=== PATIENT | male | born 1970 ===

== ENCOUNTER → 2024-06-20 13:21 | Outpatient (BNVA) | payer BC, SELFPAY | PROVIDERS: Family Provider Nurse Practitioner Family; PCP Physician Assistant Medical; Visit Provider Orthopaedic Surgery | DX: M54.9 Dorsalgia, unspecified (principal) | CPT/HCPCS: 72072; 72110 ==

== ENCOUNTER 2024-10-07 09:24 | Outpatient (RCR) | payer BC, SELFPAY | END 2024-10-18 23:59 | disposition home or self-care (01) | LOC: SPT 09:24 | PROVIDERS: Visit Provider Emergency Medicine | DX: M25.551 Pain in right hip (principal); M25.552 Pain in left hip | CPT/HCPCS: 97110; 97161 ==

== ENCOUNTER 2024-10-19 06:00 | Outpatient (RCR) | payer BC, SELFPAY | END 2024-11-18 23:59 | disposition home or self-care (01) | LOC: SPT 06:00 | PROVIDERS: Visit Provider Emergency Medicine | DX: G62.9 Polyneuropathy, unspecified (principal) | CPT/HCPCS: 97110 ==

== ENCOUNTER 2024-11-19 06:00 | Outpatient (RCR) | payer BC, SELFPAY | END 2024-12-16 09:56 | disposition home or self-care (01) | LOC: SPT 06:00 | PROVIDERS: Visit Provider Emergency Medicine | DX: G62.89 Other specified polyneuropathies (principal) | CPT/HCPCS: 97110; 97164 ==

== ENCOUNTER → 2024-12-17 09:25 | Outpatient (BNVA) | payer BC, SELFPAY | PROVIDERS: PCP Family Medicine; Visit Provider Orthopaedic Surgery | DX: M48.062 Spinal stenosis, lumbar region with neurogenic claudication (principal) | CPT/HCPCS: 36415; 80053; 81001; 85025 ==

== ENCOUNTER 2025-03-21 06:54 | Day surgery (SDC) | payer BC, SELFPAY ==
[2025-03-21] VITALS (10 sets, daily range): BP systolic 106–140; BP diastolic 53–93; PULSE 54–93; RESP 13–20; TEMP 36.1–36.6; O2SAT 95–97; BMI 31.8
--- NOTE | 2025-03-21 08:11 | P.ANESASSM_ITS ---
Pre-Anesthetic Assessment Height/Weight: Height 1.91 m Weight 115.666 kg Temp Pulse Resp BP Pulse Ox O2 Del Method 97.9 F 86 18 140/93 96 Room Air 03/21/25 07:16 03/21/25 07:16 03/21/25 07:16 03/21/25 07:16 03/21/25 07:16 03/21/25 07:16 Preop Diagnosis: Lumbar stenosis neurogenic claudication Operation Date: 03/21/25 08:40 Proposed Procedures p Lumbar Spine Decompression(Not Applicable) - Luis Alfredo Little DO Familial anesthetic complications: None Was Beta Himanshu taken within 24 hours: N/A Was Clonidine taken within 24 hours: N/A Last intake: Intake Last Liquid Date 03/20/25 Last Liquid Time 21:00 Last Solid Date 03/20/25 Last Solid Time 17:00 Social No alcohol and No tobacco Exam alert, oriented x 3, clear to auscultation bilaterally and regular rate & rhythm Airway Mallampati: Class II Dentition: other (none) CV/HEM Hypertension Anesthetic Plan ASA status: 2 Anesthesia: General Risk of > 500 ml blood loss (7ml/kg in children): No Medications/Allergies Home Medications ?Medication ?Instructions ?Recorded ?Confirmed ?Last Taken ?Type amlodipine 10 mg tablet 10 mg PO DAILY 90 days #90 t abs 12/16/22 03/20/25 03/20/25 Rx lisinopril 40 mg tablet 40 mg PO DAILY #90 tabs 04/04/1203/20/25 03/20/25 Rx tizanidine 2 mg capsule 2 mg PO Q8H PRN Muscle Spasm 09/19/24 03/20/25 03/20/25 History trazodone 50 mg tablet 50 mg PO DAILY 09/19/24 08/0 09/1403/20/25 History Allergies Allergy/AdvReac Type Severity Reaction Status Date / Time ciprofloxacin (From Cipro) Allergy RASH Verified 01/01/25 09:26 Current Medications Generic Name Dose Route Start Last Admin Trade Name Freq PRN Reason Stop Dose Admin Sodium Chloride 1,000 mls @ 30 mls/hr 03/21/25 07:15 03/21/25 07:37 Sodium Chloride 0.9% IV 03/22/25 07:14 30 mls/hr .Q24H MARGO Administration PFSH Anesthesia Social History Smoking and tobacco/nicotine status: never used tobacco/nicotine Alcohol intake: current Substance/Drug Use: never Adopted: No Caregiver/support person: No Lives independently: No Household members: spouse Marital status: service: No Current occupational status: employed Sexually active: Yes Do you think of yourself as: Straight/Heterosexual Current gender identity: Male
--- NOTE | 2025-03-21 08:45 | P.HP_ITS ---
Same Day Surgery H&P Indication for Procedure/HPI DATE OF PROCEDURE: March 21, 2025 CHIEF COMPLAINT/INDICATIONFOR SURGICAL PROCEDURE: Back and leg pain PREOP DIAGNOSIS: Lumbar stenosis neurogenic claudication PLANNED PROCEDURE: Operation Date: 03/21/25 08:40 Proposed Procedures p Lumbar Spine Decompression(Not Applicable) - Luis Alfredo Little, DO Medications/Allergies* Home Medications ?Medication ?Instructions ?Recorded ?Confirmed ?Type tizanidine 2 mg capsule 2 mg PO Q8H PRN Muscle Spasm 09/19/24 03/20/25 History trazodone 50 mg tablet 50 mg PO DAILY 09/19/24 08/0 09/14 History Allergies/Adverse Reactions Allergy/AdvReac Type Severity Reaction Status Date / Time ciprofloxacin (From Cipro) Allergy RASH Verified 01/01/25 09:26 Current Medications: Generic Name Dose Route Start Last Admin Trade Name Freq PRN Reason Stop Dose Admin Sodium Chloride 1,000 mls @ 30 mls/hr 03/21/25 07:15 03/21/25 07:37 Sodium Chloride 0.9% IV 03/22/25 07:14 30 mls/hr .Q24H MARGO Administration Pertinent History/Comorbid Conditions* Social History Smoking and tobacco/nicotine status: never used tobacco/nicotine Alcohol intake: current Substance/Drug Use: never Adopted: No Caregiver/support person: No Lives independently: No Household members: spouse Marital status: service: No Current occupational status: employed Sexually active: Yes Do you think of yourself as: Straight/Heterosexual Current gender identity: Male Pertinent Exam Findings alert, oriented x 3 and procedure specific exam findings Recommendations Risks and benefits of procedure reviewed Surgery/Procedure today Coding Level of Care Code Acute Code for Angelica Turpin
[2025-03-21] MEDS: ceFAZolin 2,000 mg SDV 2000 MG IVP (08:55)
[2025-03-21] MEDS: lidocaine-epi 1% 20 mL INJ INJECTION (10:00)
--- NOTE | 2025-03-21 10:17 | XR_ITS ---
WS: [id number] XR lumbar spine 2-3V* [id number] REASON FOR EXAM: OR PICS FINDINGS: Surgical instrument overlies the left side of the L1 fell at S1 and disc space. XR/XR lumbar spine 2-3V* [id number] IMPRESSION: Intraoperative lumbar level localization as above.
--- NOTE | 2025-03-21 10:36 | P.OP_ITS ---
Operative Report Date of procedure: March 21, 2025 Pre-op diagnosis: Lumbar stenosis with neurogenic claudication Post-op diagnosis: same Procedure done: 1. L4/5 laminectomy with partial facetectomy 2. L5/S1 laminectomy with partial facetectomy Surgeon: Luis Alfredo Little DO Estimated blood loss (mL): 15 Procedure: 1. L4/5 laminectomy with partial facetectomy 2. L5/S1 laminectomy with partial facetectomy Patient is brought to the operative suite. After undergoing anesthesia they are placed in the prone position. All areas of impingement are well padded. Patient is then prepped and draped in the normal sterile fashion. A skin incision is made over the L4/5 level. This is confirmed under c-arm guidance. A series of dilators are passed and the tubular retractor is docked on the L4 lamina. A bovie is used to clear the soft tissue off the lamina and the L 4/5 facet joint. A high speed graciela is then used to perform the laminectomy and take down the medial aspect of the L 4/5 facet joint. A kerrison rongeure was then used to take down the remaining lamina and smooth the edge of the laminectomy up to the point where the ligamentum flavum attaches. Attention was then brought to the medial aspect of the facet joint. The remaining medial aspect of the superior and inferior aspect of the facet joint were taken down with the kerrison from the pedicle of L4 to L 5. The facet joint had significant hypertrophy. Attention was then brought to the Ligamentum Flavum. The ligament was taken down from the lamina of L4 to L5 and out medially to the remaining facet joint. The ligament was thick. The dura was then exposed. The dura was in good repair. The L4 nerve was then traced with a curette out the L4/5 foramen and found to be adequately decompressed. The L5 nerve was traced with a curette around the L5 pedicle. The lateral recess was opened with a kerrison helping to further decompress the L5 nerve. Wound is then irrigated copiously with saline and surgiflo is used to stop any bleeding. The tubular retractor is removed A skin incision is made over the L5/S1 level. This is confirmed under c-arm guidance. A series of dilators are passed and the tubular retractor is docked on the L5 lamina. A bovie is used to clear the soft tissue off the lamina and t he L 5/S1 facet joint. A high speed graciela is then used to perform the laminectomy and take down the medial aspect of the L 5/S1 facet joint. A kerrison rongeure was then used to take down the remaining lamina and smooth the edge of the laminectomy up to the point where the ligamentum flavum attaches. Attention was then brought to the medial aspect of the facet joint. The remaining medial aspect of the superior and inferior aspect of the facet joint were taken down with the kerrison from the pedicle of L 5 to S1. The facet joint had significant hypertrophy. Attention was then brought to the Ligamentum Flavum. The ligament was taken down from the lamina of L5 to S1 and out medially to the remaining facet joint. The ligament was thick. The dura was then exposed. The dura was in good re pair. The L5 nerve was then traced with a curette out the L 5/S1 foramen and found to be adequately decompressed. The S1 nerve was traced with a curette around the S1 pedicle. The lateral recess was opened with a kerrison helping to further decompress the S1 nerve. Wound is then irrigated copiously with saline and surgiflo is used to stop any bleeding. The tubular retractor is removed and the wound is closed with vicryl and monocryl suture. Steri strips were applied. A sterile dressing is then placed. Patient was then placed in the supine position and transferred to the PACU in stable condition.
--- NOTE | 2025-03-21 11:25 | ANE.PACU2 ---
Inpatient post-anesthesia follow up: Airway intact: Yes Vital signs: Temperature 97.0 F Pulse Rate 54 Respiratory Rate 18 Blood Pressure 121/66 Pulse Oximetry 97 Oxygen Delivery Me thod Room Air Oxygen Flow Rate Fraction of Inspir ed Oxygen Hydration adequate: Yes Nausea and vomiting: No Pain level: 1 Mental status: Baseline
== END 2025-03-21 11:23 | disposition home or self-care (01) ==
PROVIDERS: PCP Family Medicine; Visit Provider Orthopaedic Surgery
PROC: (CPT 63005; principal; 2025-03-21 08:30)
DX: M48.062 Spinal stenosis, lumbar region with neurogenic claudication (principal); I10 Essential (primary) hypertension
CPT/HCPCS: 63047; 63048; 72100; 76000; J0690; J1100; J1885; J2405; J2704; J2710; J3010; J3490; J7030; J9999

== ENCOUNTER 2025-07-15 07:50 | Outpatient (CLI) | payer BC, SELFPAY ==
--- NOTE | 2025-07-15 08:00 | MR_ITS ---
WS: [id number] MRI LUMBAR SPINE NONCONTRAST TECHNIQUE: Sagittal T1, T2 and STIR imaging. Axial T1 and T2 imaging. CLINICAL INFORMATION: Back pain COMPARISON: MRI 05/30/2024 FINDINGS: Mild lumbar curve. No acute compression. Endplate Schmorl's nodes in the lower thoracic and upper lumbar spine. Shallow disc protrusions in the cervical spine at C3-C4 C4-C5 and C7-T1 with mild to moderate central canal stenosis. Additional smaller protrusions in the thoracic spine. L1-L2: Mild disc bulging. Narrowing of the subarticular recess bilaterally. Moderate facet arthropathy. Mild bilateral foraminal narrowing. L2-L3: Mild annular bulging. Slight narrowing of the subarticular recess bilaterally. Moderate facet arthropathy. Foramen are patent. L3-L4: Mild annular bulging. Narrowing of the LEFT greater than RIGHT subarticular recess. Moderate facet arthropathy. Small RIGHT foraminal protrusion with mild RIGHT foraminal narrowing. L4-L5: Central disc protrusion with moderate central canal stenosis. Impingement of the subarticular recess bilaterally. Moderate facet arthropathy. Mild LEFT greater than RIGHT foraminal narrowing. Small LEFT foraminal protrusion. L5-S1: Tiny shallow central protrusion. Contact of the S1 nerve roots. Mild central canal stenosis. Moderate facet arthropathy. Mild bilateral foraminal narrowing. RIGHT hemilaminectomy is new compared to previous. Visualized pelvic bony structures: Normal. Paravertebral soft tissues: Normal. Small bilateral renal cysts. MR/MR lumbar spine wo con* [id number] IMPRESSION: 1. RIGHT hemilaminectomy L5-S1 is new compared to previous. 2. Residual narrowing of the L5-S1 subarticular recess with slight contact of the traversing S1 nerve roots although slightly improved compared to previous. 3. Annular bulging L3-4 with narrowing of the subarticular recess. Tiny RIGHT foraminal protrusion with mild RIGHT foraminal narrowing. This is similar to pr evious. 4. Shallow central disc osteophyte protrusion L4-5 with moderate central canal stenosis and impingement of the traversing L5 nerve roots bilaterally. This is similar compared to previous. Mild LEFT greater than RIGHT foraminal narrowing . 5. Mild bilateral L5-S1 foraminal narrowing. 6. Moderate facet arthropathy L4-L5 and L5-S1. 7. Cervical spine stenosis described above. This could be further evaluated [facility] cervical spine MRI.
== END 2025-07-15 07:51 | disposition home or self-care (01) ==
LOC: RAD 07:51
PROVIDERS: PCP Family Medicine; Visit Provider Orthopaedic Surgery
DX: M48.061 Spinal stenosis, lumbar region without neurogenic claudication (principal); Z98.890 Other specified postprocedural states; M48.07 Spinal stenosis, lumbosacral region; M51.17 Intervertebral disc disorders with radiculopathy, lumbosacral region; M25.78 Osteophyte, vertebrae; M51.16 Intervertebral disc disorders with radiculopathy, lumbar region; M47.817 Spondylosis without myelopathy or radiculopathy, lumbosacral region; M48.02 Spinal stenosis, cervical region
CPT/HCPCS: 72148

== ENCOUNTER → 2025-08-06 11:04 | Outpatient (BNVA) | payer BC, SELFPAY | PROVIDERS: PCP Family Medicine; Referring Provider Nurse Practitioner Family; Visit Provider Internal Medicine Rheumatology | DX: M79.671 Pain in right foot (principal) | CPT/HCPCS: 73630 ==